=== PATIENT | male | born 1995 | race Caucasian/White ===

== ENCOUNTER 2018-07-04 08:22 | Observation (INO) | payer MEDICAID, SELFPAY ==
[2018-07-04] VITALS (15 sets, daily range): BP systolic 103–152; BP diastolic 58–97; PULSE 80–114; RESP 18–30; TEMP 36.4–37.8; O2SAT 92–99; BMI 53.3
--- NOTE | 2018-07-04 07:30 | TONS_PTH ---
PATIENT: IVAN THORNE LOC: [facility] U#:[id number] AGE/SX: 23/M ROOM: LA313 RE07/04/[address]: Dr. Weston Hernandez MD : 1995 BED: 1 DIS: 07/05/2018 SPEC #: [id number] RECD: 07/04/18 10:41 STATUS: JACKELYN REHumaira #: [id number] BO: 07/04/18 07:[address]: Weston Hernandez DEPT: SURGICAL PATHOLOGY RECD BY: Josue Matute ENTERED: 07/04/18 11:51 SP TYPE: TONSILS OTHR DR: Dr. Savannah Gambino MD Tissues: A - Tonsil, NOS B - Tonsil, NOS Procedures: Surgery Specimen Level III HEADER OPERATION: Tonsillectomy PRE-OP DIAGNOSIS: Chronic tonsillitis TISSUE SUBMITTED: A ? Right tonsil, B ? Left tonsil MICROSCOPIC DIAGNOSIS A. Right tonsil, tonsillectomy: Benign lymphoid follicular hyperplasia, consistent with chronic tonsillitis. Organisms consistent with actinomyces. B. Left tonsil, tonsillectomy: Benign lymphoid follicular hyperplasia, consistent with chronic tonsillitis. Organisms consistent with actinomyces. AM:stephany 07/07/18 MICROSCOPIC DESCRIPTION Slides are reviewed. GROSS DESCRIPTION A - Received in formalin labeled with the patient's name and designated right tonsil.? The specimen consists of a tonsil that weighs 9.3 gm and measures 3.5 x 2.5 x 2 cm. The external surface is pink-holt, smooth, glistening and somewhat lobulated. Focally it is hemorrhagic, granular and bears cautery artifact. Serial cross sections through the tonsil reveal normal tonsillar architecture. Bradder sections are submitted in one cassette. B - Received in formalin labeled with the patient's name and designated left tonsil.? The specimen consists of a tonsil that weighs 8.4 gm and measures 4 x 2.5 x 2 cm. The external surface is pink-holt, smooth, glistening and somewhat lobulated. Focally it is hemorrhagic, granular and bears cautery artifact. Serial cross sections through the tonsil reveal normal tonsillar architecture. Bradder sections are submitted in one cassette. / SJ:stephany 07/04/18 TC:5 CPT: 27234 x2
--- NOTE | 2018-07-04 08:17 | OP.PCM_ITS ---
Problem List (1) Chronic tonsillitis Status: Chronic (2) Sleep disorder Status: Chronic (3) Obesity Status: Chronic Qualifiers: Obesity classification: adult class 3 (BMI >= 40) Body mass index: BMI 50.0 -59.9 Report of Operation Date of Procedure: 07/04/18 Pre-Operative Diagnosis: Chronic tonsillitis, sleep apnea, obesity Post-Operative Diagnosis: same Surgery/Procedure Performed:: Tonsillectomy Description of Surgical Findings:: Zane is a 23-year-old male presents evaluation of complaints of chronic sore throat tonsillitis and morbid obesity. Examination showed marketed tonsillar hypertrophy with deep crypts consistent with chronic infection and although he denies significant sleep disruption excess fatigue or witnessed apnea certainly suspect for possible underlying sleep apnea with his body habitus and overnight observation with any proposed procedure was reviewed but he declined investigation of sleep quality. Given his chronic sore throat and significant tonsillar enlargement with changes consistent with chronic infection tonsillectomy was offered in hopes of improvement of his pain complaints and he is eager to proceed. The risks, alternatives, potential benefits, and complications were discussed at length and any questions answered to the patient and/or caregiver's satisfaction. Witnessed informed consent was obtained in the office, and the patient and/or caregiver was agreeable to proceed. Procedure went as follows: The patient was identified in the preoperative holding, brought to the operating room, was placed under general anesthesia and intubated. When appropriate anesthesia was obtained, the head of bed was rotated and the patient prepped and draped in usual sterile fashion. A Marissa Bryson mouthgag was then placed and the patient suspended from the [place] stand. The oral cavity examined and is noted to have 4+ cryptic tonsillar hypertrophy. Beginning on the right side the right tonsil was then grasped with a curved tenaculum and dissected from the underlying capsule with monopolar cautery. This was then sent as specimen. Similar procedure was then completed on the contralateral side. The oral and nasal cavities were then irrigated with saline solution, an NG tube was then placed to decompress the stomach. The patient was then returned to anesthesia, revived and extubated having tolerated the procedure well. Type of Anesthesia:: General Anesthesiologist: Weston Saldaña Special Medications: none Specimen's removed: bilateral tonsils Estimated Blood Loss (mL): 5 mL Fluids Replaced: 1000 mL Grafts/Implants Used: none - Complications none - Admit VTE Documentation VTE Present on Admission: No VTE Mechan Device Prophylaxis: SCD's VTE Pharm Prophylaxis ordered?: No
--- NOTE | 2018-07-04 08:22 | DCINST_ITS ---
Discharge Diet: Soft diet Discharge Activity: Return to Normal Activity, May not drive while taking narcotic pain medications. Call your doctor if your incision/area has: Continuous Slow Oozing, Sudden Increased Bleeding Call your doctor if you observe: Fever of 101 or Higher, Uncontrolled pain Allergies/Adverse Reactions: Allergies No Known Allergies Allergy (Verified 07/04/18 06:51) Medications to take at Discharge NK [NK] 07/01/18 Primary Care Physician: Savannah Gambino [Primary Care Provider] - Test Results: Test results from this visit will be discussed in further detail at your follow- up appointment, if applicable. Please Follow Up With: Weston Hernandez MD When: 2 weeks Proposed Discharge Date: 07/05/18
[2018-07-04] MEDS: Ipratropium/Albuterol Sulfate 3 ML AMPUL.NEB INHALATION (08:44)
--- NOTE | 2018-07-04 09:33 | SUR.PHASEI ---
AT 0920, HAD SUDDEN ONSET NAUSEA/VOMITING, SO SIGNS OF AMANDA BLOOD. DR MOSS NOTIFIED WHO STOPPED AT BEDSIDE.
[2018-07-04] MEDS: Ibuprofen 100 MG/5 ML UDC 600 MG PO ×2 (10:39→18:46)
[2018-07-04] MEDS: Lactated Ringers 1,000 ML 125 ML IV ×2 (11:56→19:34)
[2018-07-04] MEDS: Acetaminophen 160 MG/5 ML UDC 500 MG PO (14:52)
[2018-07-04] MEDS: Ondansetron 4 MG/2 ML Vial IV (18:03)
[2018-07-04] MEDS: Acetaminophen 650 MG/20 ML UDC 500 MG PO (23:14)
[2018-07-05] VITALS (8 sets, daily range): BP systolic 112–134; BP diastolic 60–76; PULSE 80–105; RESP 18; TEMP 36.6–36.7; O2SAT 95–100
--- NOTE | 2018-07-05 00:05 | NURSING ---
SpO2 alarming pt stats bouncing between 70-90% on room air. Applied 2L NC which was not effective. Increased O2 4L NC pt still not effective. Pt is snoring and breathing through mouth so applied venti mask 25% at 4L. Pt maintaining better but Sp02 still dropping into upper 70s but quickly returning into the 90s. Respiratory therapy notified. Will continue to monitor. Respiratory applied 50% on 12L venti mask, stats maintaining.
[2018-07-05] MEDS: Lactated Ringers 1,000 ML 125 ML IV (03:00)
[2018-07-05] MEDS: Acetaminophen 650 MG/20 ML UDC 500 MG PO (08:06)
--- NOTE | 2018-07-05 08:18 | CPS ---
NURSE INFORMED OF PT BEING ON ROOM AIR AND ALVA WELL
--- NOTE | 2018-07-05 10:16 | PCM.PN.SRG ---
Subjective: Doing well , reports pain well controlled, tolerating oral intake. Objective: Obese, well appearing male with oxygen desaturations overnight noted but responsive to supplemental oxygen. - Physical Exam General: Alert, Oriented x3, Cooperative, No apparent distress HEENT: Atraumatic, PERRLA, EOMI, Normocephalic, - - no bleeding oropharynx, tonsillecotmy sites with eschar Oral: Moist Mucosa Neck: Supple Abdomen: Obese Psych/Mental Status: Alert and oriented to time, place, person, mood and affect Vital Signs Temp Pulse Resp BP Pulse Ox 97.9 F 83 18 112/60 98 07/05/18 08:30 07/05/18 08:30 07/05/18 08:30 07/05/18 08:30 07/05/18 08:30 Oxygen Flow Rate (L/min) 12 Oxygen Delivery Method Venturi Mask Weight: 168.6 kg Body Mass Index (BMI) 53.3 Intake and Output for Last 24 Hours 07/03/18 07/04/18 07/05/18 23:59 23:59 23:59 Intake Total 4966 / 4966 Output Total 2450 / 2450 Balance 2516 / 2516 Medical Necessity - Tobacco Use Smoking Status: Never smoker Assessment/Plan Doing well s/p tonsillectomy with overnight observation confirming suspected sleep apnea. Will plan for sleep medicine consultation as outpatient. Upright sleeping positions reviewed as well as need for treatment of sleep findings is discussed and he is receptive to further treatment. Plan for discharge to home today.
== END 2018-07-05 12:00 | disposition home or self-care (01) ==
LOC: MS3 07-07 07:10
PROVIDERS: Admitting Provider Otolaryngology; Family Provider Family Medicine; PCP Family Medicine; Visit Provider Otolaryngology
PROC: (CPT 42826; principal; 2018-07-04 07:15)
DX: J35.01 Chronic tonsillitis (principal); E66.01 Morbid (severe) obesity due to excess calories; Z68.43 Body mass index [BMI] 50.0-59.9, adult; Z71.3 Dietary counseling and surveillance; G47.30 Sleep apnea, unspecified
CPT/HCPCS: 42826; 88304; 94640; 94762; 96361; 96374; 99218; J7120; G0378; G0379; J2405

== ENCOUNTER 2020-07-08 07:51 | Day surgery (SDC) | payer MEDICAID, SELFPAY ==
[2020-07-08 08:27] VITALS: BP 137/64; PULSE 72; RESP 17; TEMP 36.9; O2SAT 99; BMI 54.1
[2020-07-08] MEDS: Lactated Ringers 1,000 ML 100 ML IV (08:40)
--- NOTE | 2020-07-08 09:22 | DCINST_ITS ---
Discharge Activity: Return to Normal Activity Call your doctor if your incision/area has: Continuous Slow Oozing, Foul Smelling Discharge Call your doctor if you observe: Fever of 101 or Higher, Uncontrolled pain Allergies/Adverse Reactions: Allergies No Known Allergies Allergy (Verified 07/08/20 08:25) Medications to take at Discharge busPIRone [Buspar] 15 mg PO BID 07/01/20 Primary Care Physician: Savannah Gambino MD [Primary Care Provider] - Test Results: Test results from this visit will be discussed in further detail at your follow- up appointment, if applicable. Please Follow Up With: Weston Hernandez MD When: 2 weeks
--- NOTE | 2020-07-08 09:23 | OP.PCM_ITS ---
Problem List (1) Chronic mucoid otitis media of both ears Status: Chronic (2) Hearing loss, conductive, bilateral Status: Acute (3) Unspecified eustachian tube disorder, bilateral Status: Chronic Report of Operation Date of Procedure: 07/08/20 Pre-Operative Diagnosis: Bilateral middle ear effusions, conductive hearing loss, eustachian tube dysfunction Post-Operative Diagnosis: Same with thick mucoid middle ear fluid Surgery/Procedure Performed:: Bilateral myringotomy with T-tube placement Description of Surgical Findings:: Nolan is a 25-year-old male with a history of chronic eustachian tube dysfunction resulting in persistent middle ear fluid. This is been previously successfully treated with bilateral myringotomy tube placement and after extrusion he has recurrent of the fluid and a significant conductive hearing loss. Replacement was offered in hopes of restorationism of hearing and resolution of his middle ear fluid. The risks of coronavirus exposure in this time period was discussed and he is agreeable to accept this risk and return for treatment of his chronic illness. The risks, alternatives, potential complications, and benefits were discussed at length and any questions answered to the patient and/or caregiver's satisfaction. Witnessed informed consent was obtained in the office, and the patient and/or caregiver was agreeable to proceed. Procedure went as follows: The patient was identified in the preoperative holding and brought to the operating room, and placed under general anesthesia. When appropriate anesthesia was obtained, the operative microscope was brought into the field and beginning on the right side the external auditory canal and tympanic membrane visualized. This is noted to be opaque with thick mucoid effusion. A myringotomy was then placed in the anteroinferior portion the tympanic membrane and thick effusion was noted. This was difficult to aspirate from the middle ear cleft and a secondary small puncture was made in the tympanic membrane to allow for aeration of the middle ear cleft and facilitate clearance of the thick middle ear material. This was irrigated with saline solution until fully cleared. A good ET tube was then placed followed by oxymetazoline drops. Similar procedure findings a completed on the contralateral side again with thick mucoid middle ear fluid noted. The patient was then returned to anesthesia, revived and returned to recovery without complication. Type of Anesthesia:: General Anesthesiologist: Nolan Rosales Special Medications: none Specimen's removed: none Drains: none Estimated Blood Loss (mL): 0 mL Fluids Replaced: 600 mL Grafts/Implants Used: T-tubes - Complications none - Admit VTE Documentation VTE Present on Admission: No VTE Mechan Device Prophylaxis: SCD's VTE Pharm Prophylaxis ordered?: No
[2020-07-08 09:35] VITALS: BP 131/75; BP 137/64; PULSE 81; RESP 16; TEMP 36.7; O2SAT 95
[2020-07-08 09:40] VITALS: BP 120/79; BP 137/64; PULSE 81; RESP 16; O2SAT 94
[2020-07-08 09:51] VITALS: BP 121/75; BP 137/64; PULSE 79; PULSE 80; RESP 16; O2SAT 95; O2SAT 96
[2020-07-08 09:52] VITALS: BP 122/79; BP 137/64; PULSE 78; RESP 16; TEMP 36.7; O2SAT 95
[2020-07-08 10:28] VITALS: BP 137/64
== END 2020-07-08 10:30 | disposition home or self-care (01) ==
LOC: SDC 07:52 → AC 07:53
PROVIDERS: Anesthesiology; PCP Family Medicine; Referring Provider Otolaryngology; Visit Provider Otolaryngology
PROC: (CPT 69436; principal; 2020-07-08 09:05)
DX: H69.93 Unspecified Eustachian tube disorder, bilateral (principal); H90.2 Conductive hearing loss, unspecified; H65.33 Chronic mucoid otitis media, bilateral; F41.9 Anxiety disorder, unspecified; F32.9 Major depressive disorder, single episode, unspecified; Z79.899 Other long term (current) drug therapy; G47.33 Obstructive sleep apnea (adult) (pediatric); E66.9 Obesity, unspecified; Z68.43 Body mass index [BMI] 50.0-59.9, adult
CPT/HCPCS: 69436; 87635; 94799; J7120; J2405; U0003